=== PATIENT | female | born 1975 | race American Indian/Alaskan Native ===

== ENCOUNTER 2018-08-25 10:36 | Emergency (ER) | payer SELFPAY ==
[2018-08-25 10:48] VITALS: BP 119/74
--- NOTE | 2018-08-25 11:17 | Emergency Department Report ---
ED Upper Extremity Inj HPI - General Chief Complaint: Extremity Injury, Upper Stated Complaint: LFT FINGER JAMMED/PAIN Time Seen by Provider: 08/25/18 11:13 Source: patient Mode of arrival: Ambulatory Limitations: No Limitations - History of Present Illness Initial Comments: Patient is a very pleasant 42 year-old female who slammed her finger in a metal door almost a week ago. She comes in today with finger pain. It's involving the distal fourth digit of the left hand. The wound is open and patient states it is throbbing. She does have rapid cap refill and can bend although limited by pain. Distal finger. -: Sudden Other Extremity Injury: Fingers: Left Place: home Associated Symptoms: denies other symptoms - Related Data Previous Rx's Medication Instructions Recorded Last Taken Type cephALEXin [Keflex] 500 mg PO Q12HR #20 cap 08/25/18 Unknown Rx traMADol [Ultram] 50 mg PO Q6HR PRN #12 tablet 08/25/18 Unknown Rx Allergies Allergy/AdvReac Type Severity Reaction Status Date / Time Penicillins Allergy Hives Verified 08/25/18 10:37 ED Review of Systems ROS: Stated complaint: LFT FINGER JAMMED/PAIN Other details as noted in HPI Comment: All other systems reviewed and negative Constitutional: denies: see HPI ENT: denies: as per HPI Respiratory: denies: no symptoms reported Endocrine: denies: intolerance to cold Musculoskeletal: as per HPI, other (FINGER PAIN) ED Past Medical Hx - Social History Smoking Status: Current Every Day Smoker Substance Use Type: Alcohol - Medications Home Medications: Home Medications Medication Instructions Recorded Confirmed Last Taken Type cephALEXin [Keflex] 500 mg PO Q12HR #20 cap 08/25/18 Unknown Rx traMADol [Ultram] 50 mg PO Q6HR PRN #12 tablet 08/25/18 Unknown Rx ED Physical Exam - General Limitations: No Limitations General appearance: alert - Head Head exam: Present: atraumatic - Eye Eye exam: Present: normal appearance, PERRL Pupils: Present: normal accommodation - ENT ENT exam: Present: mucous membranes moist - Neck Neck exam: Present: normal inspection - Respiratory Respiratory exam: Present: normal lung sounds bilaterally - Cardiovascular Cardiovascular Exam: Present: regular rate - GI/Abdominal GI/Abdominal exam: Present: soft - Extremities Exam Extremities exam: Present: normal inspection, full ROM - Expanded Upper Extremity Exam Left Elbow exam: Present: normal inspection Forearm Wrist exam: Present: normal inspection Hand Wrist exam: Present: normal inspection, tenderness, swelling, abrasion, ecchymosis, erythema. Absent: laceration, crepidus, dislocation Vascular: Present: vascular compromise, normal capillary refill - Back Exam Back exam: Present: normal inspection, full ROM - Neurological Exam Neurological exam: Present: alert, oriented X3 - Psychiatric Psychiatric exam: Present: normal affect, normal mood - Skin Skin exam: Present: warm ED Course Vital Signs 08/25/18 10:46 Temperature 98.6 F Pulse Rate 95 H Respiratory 20 Rate Blood Pressure 119/74 O2 Sat by Pulse 100 Oximetry ED Medical Decision Making - Radiology Data Radiology results: report reviewed, image reviewed - Medical Decision Making TUFT FRACTURE wound care tdap given ancef given open fracture SPLINT FOLLOW UP and wound care instructions given Critical care attestation.: If time is entered above; I have spent that time in minutes in the direct care of this critically ill patient, excluding procedure time. ED Disposition Clinical Impression: Closed fracture of tuft of distal phalanx of finger Disposition: DC-01 TO HOME OR SELFCARE Is pt being admited?: No Does the pt Need Aspirin: No Condition: Stable Instructions: Finger Fracture (ED) Additional Instructions: SPLINT ICE REST MOTRIN FOR PAIN- MILD MEDS ORDERED TODAY FOLLOW UP WITH ORTHO SEE REFERRAL BELOW Prescriptions: cephALEXin [Keflex] 500 mg PO Q12HR #20 cap traMADol [Ultram] 50 mg PO Q6HR PRN #12 tablet PRN Reason: Pain Referrals: SYDNEY SALAZAR MD [Staff Physician] - 3-5 Days Forms: Work/School Release Form(ED) Time of Disposition: 11:18
--- NOTE | 2018-08-25 11:17 | XRay Report ---
LEFT FINGERS, 3 VIEWS History: Pain, injury. Findings: A nondisplaced but slightly comminuted tuft fracture is identified in the distal fourth digit. There is associated soft tissue swelling. The remaining bony structures and joint spaces are normal. Impression: Tuft fracture, fourth digit.
[2018-08-25] MEDS ORDERED: IBUPROFEN PO ONE (11:19)
[2018-08-25] MEDS ORDERED: BOOSTRIX IM ONE (11:38)
[2018-08-25] MEDS ORDERED: ANCEF IM ONE (11:38)
[2018-08-25] MEDS ORDERED: WATER FOR INJ (PF) ONE (12:17)
== END 2018-08-25 12:34 | disposition home or self-care (01) ==
LOC: ED 10:36
DX: S62.605A Fracture of unspecified phalanx of left ring finger, initial encounter for closed fracture (principal); F17.200 Nicotine dependence, unspecified, uncomplicated; W22.8XXA Striking against or struck by other objects, initial encounter; Y93.89 Activity, other specified; Y92.89 Other specified places as the place of occurrence of the external cause; Y99.8 Other external cause status
CPT/HCPCS: 29130; 73140; 90471; 96372; 99283; J0690